=== PATIENT | female | born 1955 | race Caucasian/White ===

== ENCOUNTER 2020-03-29 05:27 | Day surgery (SDC) | payer MEDICARE, BC ==
[2020-03-29] MEDS ORDERED: Nozin Nasal Sanitizer NASBOTH ONE (06:00)
[2020-03-29] MEDS ORDERED: Lactated Ringers 1,000 ML IV SCH (06:00)
[2020-03-29] MEDS ORDERED: Bupivacaine 0.5% 30 ML SDV ONE ×2 (06:37→07:30)
[2020-03-29] MEDS ORDERED: Midazolam 1 MG/ML 2 ML SDV ONE ×2 (07:28→08:00)
[2020-03-29] MEDS ORDERED: fentaNYL 100 MCG/2 ML SDV ONE (07:28)
[2020-03-29] MEDS ORDERED: Propofol 200 MG/20 ML SDV ONE ×3 (07:28→09:03)
[2020-03-29] MEDS ORDERED: ceFAZolin 2 GM in Premix Bag 1 BAG IV ONE (07:30)
[2020-03-29] MEDS ORDERED: Lactated Ringers 1,000 ML ONE (09:03)
[2020-03-29] MEDS ORDERED: Acetaminophen/oxyCODONE 325-5 MG Tab PO ONE (10:21)
[2020-03-29 11:07] VITALS: BP 110/72; PULSE 66
--- NOTE | 2020-04-05 21:45 | OR ---
DATE OF PROCEDURE: 03/29/2020 SURGEON: Sunday Astorga MD PREOPERATIVE DIAGNOSES: 1. Impingement, left shoulder. 2. Rotator cuff tear, left shoulder. POSTOPERATIVE DIAGNOSES: 1. Impingement, left shoulder. 2. A small full-thickness rotator cuff tear, left shoulder. PROCEDURE: Arthroscopy, left shoulder, with subacromial decompression acromioplasty and rotator cuff repair. ANESTHESIA: Interscalene block and sedation. INDICATIONS: Rut is a pleasant 65-year-old female with a history of progressive pain and weakness in her left shoulder. Examination and imaging are consistent with impingement and evidence of a small full-thickness tear or severe partial-thickness tear. She was, therefore, taken to the operating room after failing conservative treatment. Risks, benefits, and potential complications were discussed. PROCEDURE IN DETAIL: After adequate anesthesia was obtained, patient was placed in a lateral decubitus position and secured with the mejia bag positioner. Left shoulder and arm were prepped and draped in a sterile fashion and 10 pounds of traction was placed in a shoulder traction unit. A standard posterior portal was established and glenohumeral joint was inspected. This revealed no evidence of any significant articular cartilage damage to the humeral head or glenoid. Minimal degenerative changes noted in the labrum. Biceps tendon was intact. Subscapularis was intact. Undersurface of the rotator cuff showed some fraying with evidence of a small full-thickness tear anteriorly. The scope was withdrawn and placed in the subacromial space. Lateral portal was established. A moderate amount of bursitis was present. This was cleared with a combination of shaver and the radiofrequency ablation wand. The coracoacromial ligament showed scuffing and evidence of impingement and was cleared from the undersurface of the acromion. A elysia was used to perform an acromioplasty removing the anterolateral edge approximately 4 mm and bevelling this medially and posteriorly. Further evaluation of the rotator cuff showed a small full- thickness tear with slight flap without retraction along the anterolateral edge of the supraspinatus. A elysia was utilized to debride the undersurface of the tendon and the footprint was lightly decorticated. A single Mitek Healix anchor was placed into the footprint. Sutures from one pair of sutures were placed through the tendon in a mattress fashion. One limb of the other pair of sutures was placed through the tendon midway between the other pair. The mattress sutures were then tied down using standard arthroscopic technique. The simple suture was then tied over top of this utilizing the mattress suture as ripstop. This provided excellent approximation of the tear. She was taken through internal and external rotation. No other tears or abnormalities were identified. The level of the acromioplasty appeared adequate. Scope was then withdrawn. Port sites were closed in standard fashion and sterile dressing was applied. The patient tolerated the procedure well. There were no complications. Taken from the operating room in stable condition. Sunday Astorga MD /[id number] GLORIA
== END 2020-03-29 11:01 | disposition home or self-care (01) ==
LOC: JP.SDS 05:27
PROVIDERS: ATTEND Specialist
DX: M75.122 Complete rotator cuff tear or rupture of left shoulder, not specified as traumatic (principal); M75.42 Impingement syndrome of left shoulder; G47.33 Obstructive sleep apnea (adult) (pediatric); E66.9 Obesity, unspecified; K21.9 Gastro-esophageal reflux disease without esophagitis; I10 Essential (primary) hypertension; Z88.6 Allergy status to analgesic agent; Z88.8 Allergy status to other drugs, medicaments and biological substances; Z68.35 Body mass index [BMI] 35.0-35.9, adult
CPT/HCPCS: 29826; 29827; A9270; C1713; J0690; J2250; J2704; J3010; J3490; J7120

== ENCOUNTER 2020-06-07 07:27 | Day surgery (SDC) | payer MEDICARE, BC ==
[~2020-06-07 07:27] MED LIST: Bupivacaine 0.5% 30 ML SDV ONE
[2020-06-07] MEDS ORDERED: Nozin Nasal Sanitizer NASBOTH ONE (08:00)
[2020-06-07] MEDS ORDERED: Midazolam 1 MG/ML 2 ML SDV ONE (08:30)
[2020-06-07] MEDS ORDERED: Propofol 200 MG/20 ML SDV ONE (08:30)
[2020-06-07] MEDS ORDERED: Lactated Ringers 1,000 ML IV SCH (08:30)
[2020-06-07] MEDS ORDERED: fentaNYL 100 MCG/2 ML SDV ONE (08:30)
[2020-06-07] MEDS ORDERED: ceFAZolin 1 GM in Premix Bag 1 BAG IV ONE (08:30)
[2020-06-07] MEDS ORDERED: fentaNYL 250 MCG/5 ML SDV ONE (09:58)
[2020-06-07] MEDS ORDERED: Ondansetron 4 MG/2 ML SDV ONE (10:35)
[2020-06-07] MEDS ORDERED: Glycopyrrolate 0.2 MG/ML 5 ML MDV ONE (10:35)
[2020-06-07] MEDS ORDERED: Dexamethasone 4 MG/ML SDV ONE (10:35)
[2020-06-07] MEDS ORDERED: Succinylcholine 200 MG/10 ML MDV ONE (10:35)
[2020-06-07] MEDS ORDERED: Neostigmine Methylsulfate 1 MG/ML 5 ML Syringe ONE (10:35)
[2020-06-07] MEDS ORDERED: Rocuronium 50 MG/5 ML Vial ONE (10:35)
[2020-06-07] MEDS ORDERED: Acetaminophen/HYDROcodone 325-5 MG Tab PO ONE (11:27)
[2020-06-07 11:43] VITALS: BP 129/69; PULSE 60
--- NOTE | 2020-06-19 17:08 | OR ---
DATE OF PROCEDURE: 06/07/2020 SURGEON: Sunday Astorga MD PREOPERATIVE DIAGNOSES: 1. Medial meniscus tear, left knee. 2. Chondromalacia, left knee. POSTOPERATIVE DIAGNOSES: 1. Medial meniscus tear, left knee. 2. Chondromalacia, medial femoral condyle grade 3, trochlear groove grade 4, and patella grade 2 and 3. PROCEDURES: Arthroscopy left knee with partial medial meniscectomy; chondroplasty medial femoral condyle, trochlear groove, and patella. ANESTHESIA: General. INDICATIONS: Rtu is a 65-year-old female with a history of persistent left knee pain despite conservative treatment. Shows evidence of some early degenerative changes, but does not appear to be severe enough by x-ray and physical exam to warrant arthroplasty. She therefore presents for arthroscopic evaluation of the knee. Risks, benefits, potential complications of the procedure were discussed. PROCEDURE IN DETAIL: After adequate anesthesia was obtained, the patient was placed supine with a tourniquet about the left upper thigh. Left leg was prepped and draped in a sterile fashion. Leg was exsanguinated and tourniquet inflated to 300 mmHg pressure. Standard inferior, medial, and lateral portals were established. Scope was inserted and patellofemoral joint was inspected. This revealed some cracking and fissuring of the articular cartilage of the patella, grade 2 and early grade 3 changes. Moving into the distal trochlear groove, grade 3 and more severe grade changes are present. Just off the central portion of the groove more towards the medial femoral condyle, an area of grade 4 chondromalacia is present with complete loss of articular cartilage in an area measuring approximately 5 x 6 mm. Shaver was introduced and a very mild chondroplasty was performed removing just the loose fragments of articular cartilage preserving as much of the cartilage as possible. Sweeping into the medial compartment, some thinning of the main weightbearing surface noted without the full-thickness cartilage loss. The medial meniscus was evaluated and found to have a parrot-beak tear of the midbody. This was debrided back to a stable margin with a combination of punch basket and shaver. All loose fragments were removed. Intercondylar notch revealed an intact ACL and PCL. Lateral compartment revealed intact meniscus and articular cartilage. Scope was moved through the medial, lateral, patellofemoral, and suprapatellar pouches as well as medial and lateral gutters and all loose fragments were removed. No other abnormalities were identified. Knee was drained. Scope was withdrawn. Port sites were closed in a standard fashion and sterile dressing was applied. Knee was infiltrated with 0.5% Marcaine prior to application of the dressing. The patient was taken from the operating room in stable condition. Sunday Astorga MD /[id number]
== END 2020-06-07 12:15 | disposition home or self-care (01) ==
LOC: JP.SDS 07:27
PROVIDERS: ATTEND Specialist
DX: S83.232A Complex tear of medial meniscus, current injury, left knee, initial encounter (principal); M22.42 Chondromalacia patellae, left knee; I10 Essential (primary) hypertension; K21.9 Gastro-esophageal reflux disease without esophagitis; Z88.8 Allergy status to other drugs, medicaments and biological substances; E78.2 Mixed hyperlipidemia; E66.9 Obesity, unspecified; Z98.890 Other specified postprocedural states; Z68.36 Body mass index [BMI] 36.0-36.9, adult
CPT/HCPCS: 29881; A9270-GY; J0330; J0690; J1100; J2250; J2405; J2704; J2710; J3010; J3490; J7120